=== PATIENT | female | born 1980 | race Two or more races ===

== ENCOUNTER 2024-05-29 15:49 | Emergency (ER) | payer MEDICAID ==
[~2024-05-29] VITALS: Ht 152.4 cm; Wt 107.0 kg
[~2024-05-29 15:49] MED LIST: COL100C PO; [UNRECOGNIZED DRUG - OTHER] CORPAK
[2024-05-29 16:26] LABS: BILIRUBIN,URINE NEGATIVE (Neg); CLARITY,URINE TURBID (Clear); COLOR,URINE YELLOW (Yellow); GLUCOSE, URINE NEGATIVE (Neg); KETONES,URINE TRACE mg/dl (Neg); LEUKOCYTE ESTERASE ,URINE LARGE (Neg); NITRITES, URINE NEGATIVE (Neg); OCCULT BLOOD,URINE MODERATE (Neg); PROTEIN,URINE TRACE mg/dl (Neg); UROBILINOGEN,URINE 0.2 E.U/dL (0.2-1.0)
[2024-05-29 16:27] LABS: URINE HCG NEGATIVE (NEG)
[2024-05-29 16:28] LABS: UA COLLECTION TYPE CLN CATCH MIDSTREAM
[2024-05-29 16:41] LABS: BACTERIA,URINE 1+ /HPF (Neg); RBC,URINE 20-50 /HPF (0-2); SQUAMOUS EPITHELIAL CELL,UR NONE SEEN /LPF (FEW); WBC CLUMPS,URINE MANY /HPF (NEGATIVE); WBC,URINE TNTC /HPF (0-4)
[2024-05-29] MEDS ORDERED: LEVO-65 PO (17:08)
[2024-05-29] MEDS ORDERED: PHEN-716 PO (17:08)
[2024-05-29 17:16] VITALS: BP 132/74; PULSE 67; RESP 16; TEMP 98.2; O2SAT 96
== END 2024-05-29 17:17 | disposition home or self-care (01) ==
LOC: ER 15:49
DX: N39.0 Urinary tract infection, site not specified (principal); F41.9 Anxiety disorder, unspecified; F15.90 Other stimulant use, unspecified, uncomplicated; Z88.5 Allergy status to narcotic agent; Z79.899 Other long term (current) drug therapy
CPT/HCPCS: 81001; 81025; 87077; 87088; 87186; 99283